=== PATIENT | male | born 1980 ===

== ENCOUNTER 2023-12-06 20:06 | Emergency (ER) | payer OTHER, SELFPAY ==
[2023-12-06 20:10] VITALS: BP 162/83; PULSE 121; O2SAT 95
[2023-12-06 20:12] VITALS: BP 162/83; PULSE 120; RESP 17; TEMP 37.5; O2SAT 96; BMI 29.5
--- NOTE | 2023-12-06 20:19 | ED_ITS ---
HPI - General Adult General Chief complaint: Dental/Oral Stated complaint: face swelling/lip numb Time Seen by Provider: 12/06/23 20:19 Source: patient Mode of arrival: Ambulatory History of Present Illness HPI narrative: 43-year-old gentleman with a history of hyperlipidemia presents with dental pain that has been ongoing for approximately 36 hours, he is taken 2 g of ibuprofen over the 36 hours and is concerned at the volume he is taken with minimal relief. He is noticing increasing swelling over the angle of the jaw. Some minor tenderness with when opening his mouth. No fevers or chills. On arrival in the emergency department he is hypertensive and tachycardic. He denies any prior issues with opioid, methamphetamine or alcohol use disorders. He does not currently have a dentist but does recognize that dental evaluation will provide definitive treatment. Related Data Previous Rx's Medication Instructions Recorded simvastatin 10 mg tablet 10 mg PO HS #30 tabs 02/03/16 oxycodone-acetaminophen 7.5 mg-325 1 - 2 tab PO Q6HP PRN ##25 06/11/16 mg tablet (Percocet) amoxicillin 500 mg capsule 500 mg PO TID #21 caps 12/06/23 oxycodone-acetaminophen 5 mg-325 1 tab PO Q6H PRN pain #10 tabs 12/06/23 mg tablet Allergies Allergy/AdvReac Type Severity Reaction Status Date / Time No Known Drug Allergies Allergy Verified 12/06/23 20:12 Review of Systems Review of Systems Narrative: Pertinent positive and negative findings as per HPI Patient History Medical History (Updated 12/06/23 @ 21:31 by Balbina Gavin MD) Pure hypercholesterolemia (08/19/15) Social History Smoking Status: Current every day smoker Smoking Status: Current every day smoker alcohol intake frequency: holidays/special occasions only Substance Use Type: does not use Exam Initial Vital Signs Initial Vital Signs: Vital Signs Pulse Rate 121 H 12/06/23 20:10 Blood Pressure 162/83 H 12/06/23 20:10 Pulse Oximetry 95 12/06/23 20:10 General: Healthy appearing, mild pain but Able to give a complete and coherent history. Well-nourished well-developed HEENT: Moist mucous membranes, normal sclera with reactive pupils, significant periodontal disease, no drainable abscess appreciated, swelling in the left lower quadrant toward the angle of the jaw with mild submandibular adenopathy. Neck: supple Respiratory: Lungs are clear to auscultation, no wheezing no rales no rhonchi. Full and symmetrical air movement Cardiac: Tachycardic but regular rhythm no murmurs no bruits Skin: Warm and dry, no rashes Neurologic: Grossly neurologically intact with no obvious asymmetries or abnormalities Extremities: No trauma, well perfused Psych: Cooperative, appropriate insight and affect Course Orders Ordered: ED Orders 12/06/23 20:42 Blood Culture Stat Complete Blood Count AUTO DIFF Stat Comprehensive Metabolic Panel Stat Lactate (Lactic Acid) Stat Discontinued Medications Acetaminophen (Acetaminophen 325 Mg Tablet) 650 mg PO NOW ONE Stop: 12/06/23 20:26 Last Admin: 12/06/23 20:52 Dose: 650 mg Documented By: Sodium Chloride (Normal Saline 0.9%) 1,000 mls @ 1,000 mls/hr IV BOLUS ONE Stop: 12/06/23 21:24 Last Admin: 12/06/23 20:52 Dose: 1,000 mls/hr Documented By: Ceftriaxone Sodium 2,000 mg/ (Sodium Chloride) 100 mls @ 200 mls/hr IV NOW ONE Stop: 12/06/23 20:26 Last Admin: 12/06/23 20:52 Dose: 200 mls/hr Documented By: Vital Signs Vital signs: Vital Signs - 8 hr 12/06/23 20:10 12/06/23 20:10 12/06/23 20:12 Temperature 99.5 F Pulse Rate 121 H 120 H Respiratory Rate 17 Blood Pressure 162/83 H 162/83 H Pulse Oximetry 95 96 Oxygen Delivery Method Room Air 12/06/23 20:30 12/06/23 20:30 Temperature Pulse Rate 109 H Respiratory Rate 20 Blood Pressure 144/88 H Pulse Oximetry 94 Oxygen Delivery Method Medical Decision Making Lab Data 12/06/23 20:42 12/06/23 20:42 Labs: Lab Results 12/06/23 Range/Units 20:42 WBC 12.1 H (4.5-11.0) X10^3/uL RBC 4.68 (4.5-5.9) X10^6/uL Hgb 15.0 (13.5-17.5) g/dL Hct 43.9 (41-53) % MCV 93.9 (80-100) fL MCH 32.1 (26-34) PG MCHC 34.2 (30-36) % RDW 13.1 (11.6-14.8) % Plt Count 184 (150-400) X10^3/uL Neut % (Auto) 71.7 (50-75) % Lymph % (Auto) 20.9 L (25-40) % [place] % (Auto) 4.4 (3-14) % Eos % (Auto) 2.3 (2-4) % Baso % (Auto) 0.7 (0-2) % Neut # (Auto) 8700 H (9644-2269) /uL Lymph # (Auto) 2500 (9571-5724) /uL [place] # (Auto) 500 (0-900) /uL Eos # (Auto) 300 (0-450) /uL Baso # (Auto) 100 (0-100) /uL Sodium 140 (137-145) mmol/L Potassium 3.9 (3.4-5.1) mmol/L Chloride 111 H (98-107) mmol/L Carbon Dioxide 25 (22-32) mmol/L BUN 13 (9-20) mg/dL Creatinine 0.70 (0.66-1.25) mg/dL Estimated GFR > 60 (>60) mL/min BUN/Creatinine Ratio 18.6 (6-22) Glucose 93 (70-100) mg/dL Lactate 0.8 (0.7-2.1) mmol/L Calcium 9.1 (8.4-10.2) mg/dL Total Bilirubin 0.5 (0.2-1.3) mg/dL AST 20 (17-59) IU/L ALT 17 (<50) IU/L Alkaline Phosphatase 88 (38-126) U/L Total Protein 7.2 (6.3-8.2) g/dL Albumin 4.4 (3.5-5.0) g/dL Globulin 2.8 (1.7-4.1) g/dL Albumin/Globulin Ratio 1.6 (1.0-2.8) MDM Narrative Medical decision making narrative: CC: Dental pain and swelling of the angle of the jaw Complicating co-morbidities: Hyperlipidemia Data collected from: patient Differential considered: Abscess, periodontal disease, Cecilio's angina, sepsis Exam documented above, pertinent findings include: Significant periodontal disease, swelling but no drainable or clearly defined abscess. He is able to open his jaw with mild tenderness. Significantly tachycardic and hypertensive. Lab Test results independently reviewed as above. Pertinent findings: CBC shows mild leukocytosis at 12.1 without significant left shift Chemistries are reassuring Lactic acid is not elevated Treatments: Ceftriaxone, Tylenol, fluids Discussion: 43-year-old gentleman with 36 hours of increasing dental pain left lower area with facial swelling. Significantly tachycardic and hypertensive on arrival with no alternate explanation. Lab work is actually fairly reassuring with no evidence of sepsis. His heart rate and blood pressure come down appropriately. He was given an initial dose of ceftriaxone. At this point there is no indication for additional lab work, imaging studies or hospitalization. Prescription for amoxicillin for 7 days is sent to [facility] with instructions to complete the full course and follow up with a dentist for definitive treatment. We talked about pain control and a small prescription for Percocet is given as well. Questions are answered and he is safe for discharge Discharge Plan Departure Patient Disposition: Home Clinical Impression: Dental abscess Instructions: DI for Dental Pain Activity Restrictions/Additional Instructions: Thank you for coming in today With your facial swelling and your elevated heart rate and blood pressure, we did do additional blood work and showed you do not have infection spreading throughout your body. You do have infection associated with teeth in the lower left part of your jaw. You were given IV antibiotics, ceftriaxone, to start in the emergency department. 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 For severe pain using 400 mg of ibuprofen and 1 Percocet can also be helpful. Percocet has Tylenol plus narcotic and will cause constipation (please make sure you by a stool softener when you pickling machine operator your prescriptions) and has a potential for addiction. If you find that you are getting worse or develop any new symptoms, please feel free to return to the emergency department for further evaluation. Prescriptions: New oxycodone-acetaminophen 5-325 mg tablet 1 tab PO Q6H PRN (Reason: pain) Qty: 10 0RF amoxicillin 500 mg capsule 500 mg PO TID Qty: 21 0RF No Action simvastatin 10 MG tablet 10 mg PO HS Qty: 30 3RF oxycodone-acetaminophen [Percocet] 7.5 MG/325 MG tablet 1 - 2 tab PO Q6HP PRNQty: 25 0RF Referrals: Damon Sanderson MD [Primary Care Provider] - Stand Alone Forms: Patient Portal/API
[2023-12-06 20:30] VITALS: BP 144/88; PULSE 109; RESP 20; O2SAT 94
[2023-12-06] MEDS: ACETAMINOPHEN 325 MG TABLET 650 MG PO (20:52)
[2023-12-06] MEDS: SODIUM CHLORIDE 0.9% 1,000 ML 1000 ML IV (20:52)
[2023-12-06] MEDS: cefTRIAXone 2,000 MG in SODIUM CHLORIDE 0.9% 100 ML 200 MG IV (20:52)
[2023-12-06 20:59] LABS: Add Manual Diff / Slide Review NO; Basophils Absolute Auto 100 /uL (0-100); Basophils Percent Auto 0.7 % (0-2); Eosinophils Absolute Auto 300 /uL (0-450); Eosinophils Percent Auto 2.3 % (2-4); Hematocrit 43.9 % (41-53); Lymphocytes Absolute Auto 2500 /uL (1100-4500); Lymphocytes Percent Auto 20.9 % (25-40); Mean Corpuscular HGB Conc 34.2 % (30-36); Mean Corpuscular Hemoglobin 32.1 PG (26-34); Mean Corpuscular Volume 93.9 fL (80-100); Monocytes Absolute Auto 500 /uL (0-900); Monocytes Percent Auto 4.4 % (3-14); Neutrophils Absolute Auto 8700 /uL (1500-7000); Neutrophils Percent Auto 71.7 % (50-75); Platelet Count 184 X10^3/uL (150-400); Red Blood Cell Count 4.68 X10^6/uL (4.5-5.9); Red Cell Distribution Width 13.1 % (11.6-14.8); White Blood Cell Count 12.1 X10^3/uL (4.5-11.0)
[2023-12-06 21:00] VITALS: BP 156/97; PULSE 95; RESP 12; O2SAT 96
[2023-12-06 21:03] LABS: Lactate (Lactic Acid) 0.8 mmol/L (0.7-2.1)
[2023-12-06 21:04] LABS: Alanine Aminotransferase 17 IU/L (<50); Albumin 4.4 g/dL (3.5-5.0); Albumin Globulin Ratio 1.6 (1.0-2.8); Alkaline Phosphatase 88 U/L (38-126); Aspartate Aminotransferase 20 IU/L (17-59); BUN Creatinine Ratio 18.6 (6-22); Bilirubin Total 0.5 mg/dL (0.2-1.3); Blood Urea Nitrogen 13 mg/dL (9-20); Calcium 9.1 mg/dL (8.4-10.2); Carbon Dioxide 25 mmol/L (22-32); Chloride 111 mmol/L (98-107); Estimated Glomerular Filt Rate > 60 mL/min (>60); Globulin 2.8 g/dL (1.7-4.1); Glucose 93 mg/dL (70-100); HEMOLYSIS < 15 (0-50); Potassium 3.9 mmol/L (3.4-5.1); Sodium 140 mmol/L (137-145); Total Protein 7.2 g/dL (6.3-8.2)
[2023-12-06 21:30] VITALS: BP 154/90; PULSE 89; RESP 17; O2SAT 97
[2023-12-06 21:39] VITALS: BP 154/85; PULSE 85; RESP 18; TEMP 36.6; O2SAT 98
== END 2023-12-06 21:41 | disposition home or self-care (01) ==
PROVIDERS: Emergency Provider Emergency Medicine; Family Provider Family Medicine; PCP Family Medicine
DX: K04.7 Periapical abscess without sinus (principal); I10 Essential (primary) hypertension; R00.0 Tachycardia, unspecified
CPT/HCPCS: 80053; 83605; 85025; 87040; 96365; 99284; J0696